=== PATIENT | male | born 1965 | race African-American/Black ===

== ENCOUNTER 2016-08-06 23:50 | Emergency (ER) | payer SELFPAY ==
[2016-08-07 03:24] LABS: BASOPHILS 0.5 %; BASOPHILS ABSOLUTE 0.04 10/3/uL (0.0-0.16); EOSINOPHILS 2.6 %; EOSINOPHILS ABSOLUTE 0.23 10/3/uL (0.0-0.53); HEMOGLOBIN 15.7 g/dL (13.6-17.8); IMMATURE GRANULOCYTES 0.1 %; IMMATURE GRANULOCYTES ABSOLUTE 0.01 10/3/uL (0.0-0.11); LYMPHOCYTES 30.7 %; MEAN CORPUS HGB CONC 36.5 g/dL (32.0-36.0); MEAN CORPUSCULAR HEMOGLOB 33.5 pg (26.0-34.0); MEAN PLATELET VOLUME 9.8 fL (9.2-13.0); MONOCYTES ABSOLUTE 0.53 10/3/uL (0.21-1.20); NEUTROPHILS 60.1 %; NEUTROPHILS ABSOLUTE 5.29 10/3/uL (2.02-8.40); PLATELET COUNT 212 10/3/uL (150-400); RBC DISTRIBUTION WIDTH 12.6 % (12.0-16.0); RED CELL COUNT 4.68 10/6/uL (4.7-6.1)
[2016-08-07 03:30] LABS: ER CBC TAT 0 Hrs 13 Mins; MANUAL DIFF NO %; MEAN CORPUSCULAR VOLUME 91.9 fL (80-100); WHITE BLOOD CELLS 8.8 10/3/uL (4.5-10.5)
[2016-08-07 03:37] LABS: BUN (BLOOD UREA NITROGEN) 7 MG/DL (6-23); CALCIUM, SERUM 8.8 MG/DL (8.5-10.4); CHLORIDE, SERUM 109 MMOL/L (96-112); CO2 (CARBON DIOXIDE) 24 MMOL/L (24-34); CREATININE 0.89 MG/DL (0.70-1.30); GFR AFRICAN AMERICAN 117 ML/MIN (>=60); GFR NON AFRICAN AMERICAN 101 ML/MIN (>=60); GLUCOSE, SERUM 93 MG/DL (60-99); POTASSIUM, SERUM 3.8 MMOL/L (3.5-5.3)
[2016-08-07 03:38] LABS: SODIUM, SERUM 145 MMOL/L (135-148)
[2016-08-07 05:20] LABS: ASCORBIC ACID (UR NOT ORDER) NEG (NEG); BILIRUBIN, URINE NEGATIVE (NEG); ER URINALYSIS TAT 0 Hrs 00 Mins; KETONE, URINE NEGATIVE (NEG); LEUKOCYTE ESTERASE(NOT OR TRACE (NEG); NITRITE (URINE) POS (NEG); WBC (NOT ORDERED) (RFLEX) 3 (0-5)
== END 2016-08-07 05:37 | disposition home or self-care (01) ==
LOC: ER 23:50
PROVIDERS: Physician Assistant
PROC: 0T9B70Z Drainage of Bladder with Drainage Device, Via Natural or Artificial Opening (ICD-10-PCS; principal; 2016-08-06)
DX: R33.9 Retention of urine, unspecified (principal); N13.5 Crossing vessel and stricture of ureter without hydronephrosis; F17.200 Nicotine dependence, unspecified, uncomplicated
CPT/HCPCS: 80048; 81001; 85025; 96374; 99284; A9270-GY; J2405

== ENCOUNTER 2017-01-12 16:26 | Inpatient (IN) | payer SELFPAY ==
[~2017-01-12] VITALS: Ht 188 cm; Wt 89.8 kg
--- NOTE | ~2017-01-12 | HP ---
History And Physical [facility] [address] [place]. [address] NAME: CELESTINA SHETH : 69 STATUS : ADM Patricio PAT#: [id number] AGE: 51 ADM/REG DATE : 01/12/17 MR#: [id number] REPORT SERV DATE: 01/13/17 DICTATED BY: JUANY MUÑOZ DATE: 01/12/17 REPORT STATUS : Draft TRANSCRIBED BY: MODL DATE: 01/12/17 DATE OF ADMISSION: 01/12/2017 CHIEF COMPLAINT: Left-sided weakness over the last 24 hours. HISTORY OF PRESENT ILLNESS: The patient is a 51-year-old, male very pleasant with past medical history of enlarged bladder requiring frequent home cath who says that over the last few weeks he has had upper respiratory illness like cold type symptoms that yesterday was productive, approximately green and noticed approximately yesterday started having left-sided numbness symptoms. The patient's fiancee who is SAS DEVELOPER at [employer] after being aware of the symptoms told patient to come into the hospital. The patient had initially been hesitant to tell anybody as he thought these were secondary to cold headache type symptoms. Symptoms were constant, moderate severity, nonradiating, no pain. He did have mild headache posterior back, but does not typically have headaches. No nausea, vomiting, fevers, or chills. He did have occasional upper respiratory sinus congestion with green sputum yesterday. Symptoms; there is nothing worsening symptoms, no relieving symptoms. Symptoms still currently present, reproducible, did have left side face, left upper extremity, left lower extremity, all numbness reproducible on physical exam, and does have mild weakness on left arm with mild drift and decreased sensation to touch on legs. ADDITIONAL REVIEW OF SYSTEMS: Ten-point review of systems negative except for that noted in the HPI. PAST MEDICAL HISTORY: Of enlarged bladder and self catheterization. FAMILY HISTORY: Recently female cancer in sister who just passed and hypertension. SOCIAL HISTORY: He smokes 1 pack per day. No alcohol or illicits. Single but accompanied by fiancee at bedside. SURGICAL HISTORY: Possible hernia history. PHYSICAL EXAMINATION: VITAL SIGNS: The patient's blood pressure 141/73, temperature 98, pulse 55, respirations 16, O2 sats 98% on room air. GENERAL: No acute distress. Calm, pleasant. HEAD: Normocephalic, atraumatic. EYES: No scleral icterus. EOMI. ENT: Nares patent. Tongue midline. RESPIRATORY: Clear to auscultation. No wheezes, rales, except on deep breath does have mild very faint right rhonchi in mid lung field posterior, improved with cough. CV: Regular rate. No rubs or gallops. GI: Soft, nontender, nondistended. Bowel sounds positive. : Deferred. MUSCULOSKELETAL: Moves all extremities x4. SKIN: Warm and dry. History And Physical [address] [place]. [address] NAME: CELESTINA SHETH : 69 STATUS : ADM Patricio PAT#: [id number] AGE: 51 ADM/REG DATE : 01/12/17 MR#: [id number] REPORT SERV DATE: 01/13/17 DICTATED BY: JUANY MUÑOZ DATE: 01/12/17 REPORT STATUS : Draft TRANSCRIBED BY: TIGIST DATE: 01/12/17 LYMPH: No cervical or supraclavicular lymphadenopathy. HEME: No bleeding or bruising. NEURO: He does have paresthesia on left face, left side of hand and leg reproducible. After extension of arms does have left hand drift, left side 4+, right side lower extremity 5+ strength. Gait not tested. Symmetrical smile. Pupil with reflex, tongue midline. Normal vocation and speech sabiha. Normal shoulder shrug and normal wrinkled brow. Normal school cafeteria cook head strength. PSYCH: Appropriate mood and affect. LABS: CBC grossly within normal limits. Glucose of 104. CMP grossly within normal limits, mildly elevated globulin of 4.3. LFTs within normal limits. Troponin negative. Brain without contrast, negative. Chest PA lateral; no evidence of cardiopulmonary disease. EKG; sinus bradycardia, rate of 54, QTc 422. No acute dynamic ST changes. ASSESSMENT AND PLAN: 1. Transient ischemic attack. 2. Bronchitis, possible early pneumonia. 3. chronic asthmatic bronchitis. 4. Tobacco use. 5. Questionable 20-pound weight loss. PLAN: 1. For TIA, negative CT of the head. We will perform TIA order set. We will check MRI MRA with ultrasound carotids echocardiogram. The patient does have smoking history. No definite tachyarrhythmias noted on echocardiogram but does have left-sided numbness with mild drift, mild weakness 4+ on left foot and 5+ right foot. He does have concurrent upper respiratory infection, possible viral likely turning to bacterial component. We will additionally address this. The patient does have what appears to be headache migraine possible from sinusitis, maybe some residual. No recent tick bites or tick borne diseases. 2. Bronchitis, possible early CAB. We will check sputum, antibiotics, cultures. No additional SIRS symptoms. Empiric antibiotics due to sputum and possible deescalation as tolerated. 3. Chronic catheterization. Check UA. Additionally repeat bladder scan. 4. Tobacco use, counseled nicotine patch one pack per day. 5. Questionable 20 pounds weight loss over the last month to 2 months. He has had different stressors in life with loss of family member. We will check chest x-ray, KUB, check TSH, pre-albumin. Further disposition pending findings from above. DDN/MODL History And Physical [address] [address] NAME: CELESTINA SHETH : 69 STATUS : ADM Patricio PAT#: [id number] AGE: 51 ADM/REG DATE : 01/12/17 MR#: [id number] REPORT SERV DATE: 01/13/17 DICTATED BY: JUANY MUÑOZ DATE: 01/12/17 REPORT STATUS : Draft TRANSCRIBED BY: TIGIST DATE: 01/12/17 Juany Muñoz MD / [id number] CC: Bruna Byers MD
--- NOTE | ~2017-01-12 | CN ---
Consultation Report [facility] [address] [place]. [address] NAME: CELESTINA SHETH : 69 STATUS : ADM Patricio PAT#: [id number] AGE: 51 ADM/REG DATE : 01/12/17 MR#: [id number] REPORT SERV DATE: 01/13/17 DICTATED BY: SOFIE FREEMAN DATE: 01/13/17 REPORT STATUS : Draft TRANSCRIBED BY: MODeJssy DATE: 01/13/17 NEUROLOGY CONSULTATION DATE OF CONSULTATION: 01/13/2017 REASON FOR CONSULTATION: Right-sided hemiparesis. PCP: None. HOSPITALIST: Dr. Byers. HISTORY OF PRESENT ILLNESS: The patient is a 51-year-old male, who has very minimal past medical history except he has had a large bladder. He has been doing self catheterization since the early because he is unable to affectively empty his bladder. He states that when he was a young child, he fell on his "tailbone," and feels that was a contributing factor to him not being able to affectively empty his bladder. He has been to see urologist and they were unable to determine the etiology. He does not have an enlarged prostate however. The patient has had an upper respiratory infection for the last few weeks. He has been coughing up thick yellow green sputum. His fiancee, who is a GEOTHERMAL FIELD TECHNICIAN at [employer] has encouraged him to seek medical treatment. He also had been complaining of left-sided numbness and weakness over the last two days. Finally, with his fiancee's insistence he came into the emergency department for further evaluation and treatment. Suspecting that he may have had a TIA or stroke, he was admitted by the ER physicians to the CDU for evaluation. The patient mentions that he has a positive family history for stroke and was concerned that he may have had one. He denies any visual changes. He denies any imbalance; however, states that it takes him longer to walk on his rounds at work since Wednesday. PAST MEDICAL HISTORY: "Enlarged bladder" having to do self catheterization sincere the early and hernia. Tobacco abuse. PAST SURGICAL HISTORY: Hernia repair. HOME MEDICATIONS: Includes Tylenol p.r.n. ALLERGIES: NONE. SOCIAL HISTORY: The patient has a fiancee. 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 He smokes one-pack per day. Denies use of alcohol or illicits. FAMILY HISTORY: The patient's father with a stroke six years ago. His mother at the age of 64 from bone cancer, and he has a sister who with SILO FILLER cancer, she also had hypertension. Consultation Report [facility] [id number] [place]. [address] NAME: CELESTINA SHETH : 69 STATUS : ADM Patricio PAT#: [id number] AGE: 51 ADM/REG DATE : 01/12/17 MR#: [id number] REPORT SERV DATE: 01/13/17 DICTATED BY: SOFIE FREEMAN DATE: 01/13/17 REPORT STATUS : Draft TRANSCRIBED BY: TIGIST DATE: 01/13/17 REVIEW OF SYSTEMS: For pertinent positives, please refer to the HPI. PHYSICAL EXAMINATION: GENERAL: The patient is a 51-year-old male, who stands 187 cm tall and weighs 89.8 kg. VITAL SIGNS: He is afebrile. Heart rate 85, respiratory rate 18, O2 saturations on room air 97%, and blood pressure 125/72. NEUROLOGIC: The patient is alert. He is oriented x4. Pleasant, communicates appropriately. Pupils are 3 mm PERRLA. EOMs are intact; however, he has slight nystagmus with rightward gaze. Visual leggett via confrontation are full bilaterally. The patient does not have a facial droop. Tongue, no tongue deviation. Uvula is midline. He does report diminished sensation on the left side of the face when compared to the right. Has a slight pronator drift on the left when compared to the right. Upper extremity strength in the right is 5/5, on the left is 4/5. Upper DTRs are minimal at best. Lower extremity strength is 4/5 on the left, and a 5/5 on the right. Patellar reflexes 1+ on the left. Unelicitable on the right. Downgoing toes bilaterally. The patient does report diminished sensation on the entire left side when compared to the right. He can get out of the bed and ambulate. He has good locomotion. Slight circumduction with the left hip when compared to the right. He is unable to tandem, but Romberg is negative. NECK: No carotid bruits, JVD, or thyromegaly. CHEST: Lung sounds are clear. HEART: Regular rate and rhythm with no murmur, click, gallop, or rub. PMI is apical. ABDOMEN: Soft, nontender. Active bowel sounds. LABORATORY DATA: CBC is normal. BMP is normal. CT of the brain without contrast, no acute changes. Echocardiogram is pending. Carotid duplex study is pending. Chest x-ray, no acute changes. ASSESSMENT/PLAN: 1. Probable stroke in the right MCA territory. At this point, the patient will undergo an MRI of the brain without gadolinium and an MRA of the head and neck. He also has an echocardiogram. PT and OT have been consulted. Case Management has been consulted for rehab placement. He is on aspirin 325 mg and his Lipitor will be increased to 80 mg at bedtime. Patient education was done on risk factor reduction. 2. Possible neurogenic bladder. The patient has been self cathing since the early . We will go ahead and do an MRI of the L-spine to rule out any structural abnormalities that may be contributing to the patient's neurogenic bladder. A urinalysis with micro will be checked also. Thank you again for including us in consultation. We will continue to follow with you. Dr. Sofie Freeman, collaborating physician has been notified of the patient's case and plan of care. DICTATED BY: Tangela Dee DNP, [facility]- Consultation Report [address] [address] NAME: CELESTINA HSETH : 69 STATUS : ADM Patricio PAT#: [id number] AGE: 51 ADM/REG DATE : 01/12/17 MR#: [id number] REPORT SERV DATE: 01/13/17 DICTATED BY: SOFIE FREEMANJHE DATE: 01/13/17 REPORT STATUS : Draft TRANSCRIBED BY: MODJessy DATE: 01/13/17 ANYA/TIGIST Sofie Freeman MD / [id number] CC: Bruna Byers MD
--- NOTE | ~2017-01-12 | DS ---
Discharge Summary [facility] [id number] [facility] [place]. [address] NAME: CELESTINA SHETH : 69 STATUS : DIS Patricio PAT#: [id number] AGE: 51 ADM/REG DATE : 01/12/17 MR#: [id number] REPORT SERV DATE: 01/16/17 DICTATED BY: BRUNA JUSTIN DATE: 01/16/17 REPORT STATUS : Draft TRANSCRIBED BY: MODJessy DATE: 01/16/17 ADMISSION DATE: 01/12/2017 DISCHARGE DATE: 01/16/2017 CONSULTATION: Neurology, Dr. Sofie Freeman. DISCHARGE DIAGNOSES: 1. Transient ischemic attack. 2. Left-sided hemiparesis. 3. Mucopurulent bronchitis. 4. Tobacco abuse. 5. Cervical spine stenosis. IMAGIN. Brain CT without contrast, impression: Negative noncontrast CT exam of the brain. 2. Chest x-ray, AP and lateral, impression: No evidence of acute cardiopulmonary disease. 3. Carotid Doppler ultrasound, impression: No significant carotid stenosis. The vertebral artery exhibit antegrade flow. 4. Echocardiogram, summary: Normal left ventricular size and systolic function with EF 60%. Normal left ventricular diastolic function. Normal right ventricular size and systolic function. No significant valve disease. No evidence of right to left shunt by bubble study. 5. MRI neck without contrast, impression: Brachiocephalic structures demonstrated no significant stenosis, carotid, vertebral, and subclavian arteries. There is a small amount of mild atherosclerotic changes of the proximal portion of the common carotid of the left side. 6. MRI brain, impression: There is no evidence of an acute or chronic ischemic changes. There is some mild left maxillary sinusitis. The remainder of the exam is normal. 7. MRI lumbar spine, impression: Massively dilated urinary bladder. No evidence of any canal stenosis or cord compression in the portion of the lumbar spine included. 8. MRA head, impression: Normal intracranial MRA. 9. MRI brain with and without contrast, impression: Repeat MRI with contrast again demonstrated no evidence of a recent infection, tumor, or mass to explain the patient's persistent stroke-type symptoms. 10.MRI cervical spine, impression: Central canal is spared. The neuroforaminal on the left demonstrate marked C3-C4 encroachment, which could be consistent with left C4 root symptoms. Right neural foramina demonstrated encroachment at C3, C4, C5 levels, severe, but could explain intermittent right C4-C5 nerve root irritation. Benign appearing high spinal intensity structure on the left, probably colloid cyst. Right foraminal encroachment marked at C3-C4. INVASIVE PROCEDURE PERFORMED DURING THIS ADMISSION: Lumbar puncture, CSF analysis essentially within normal limits. HISTORY OF PRESENT ILLNESS: For detailed HPI, please make reference to Dr. Du Pérez's dictation on 01/12/2017. In brief, this is a 51-year-old male, who Discharge Summary [address] [place]. [address] NAME: CELESTINA SHETH : 69 STATUS : DIS Patricio PAT#: [id number] AGE: 51 ADM/REG DATE : 01/12/17 MR#: [id number] REPORT SERV DATE: 01/16/17 DICTATED BY: BRUNA JUSTIN DATE: 01/16/17 REPORT STATUS : Draft TRANSCRIBED BY: TIGIST DATE: 01/16/17 presented within the emergency room department with left-sided weakness. Vital signs on presentation, blood pressure was 141/73, temperature was 98, pulse was 55, respiratory rate 16, saturating 98% on room air. Neurology exam showed left hand drift, left side strength 4/5. Right upper lower extremity, 5/5. LABORATORY DATA: CBC grossly within normal limits. Glucose 104. CMP grossly within normal limits. EKG, sinus bradycardia with ventricular rate 54, QTc 422. No ST dynamic changes. A CT without contrast of the brain was done in the ER showed no acute intracranial process. The patient was admitted to the Hospitalist Service for further evaluation. Left-sided hemiparesis likely due to TIA. Neurology was consulted and recommended a full stroke workup which includes MRI/MRA of the head and neck, a carotid Doppler ultrasound, and echo study with bubble study. All report came back essentially within normal limits. Detailed report as dictated above. Given initial persistent left-sided hemiparesis, a lumbar puncture was performed to rule out possibility of herpes or subarachnoid hemorrhage. CSF analysis was essentially within normal limits. Subarachnoid hemorrhage was ruled out as a cause of the left-sided hemiparesis as well as herpes simplex was also ruled out. Also, meningoencephalitis was ruled out with CSF analysis. Repeat imaging of the brain was still essentially within normal limits. Hence CVA was ruled out in this prior to discharge. Prior to discharge, the patient has left-sided hemiparesis have significantly improved. The patient was advised to continue physical therapy as an outpatient. Next, mucopurulent bronchitis, the patient reported cough productive of yellowish sputum during the course of this admission, received empiric antibiotics with significant improvement. The patient was counseled to abstain from smoking. Neurogenic bladder with history of chronic catheterization, the patient was advised to continue self catheterization as an outpatient. DISCHARGE MEDICATION: 1. Aspirin 325 mg p.o. daily. 2. Lipitor 80 mg at bedtime. 3. Azithromycin 250 mg p.o. daily. DISCHARGE ACTIVITIES: As tolerated. DISCHARGE FOLLOWUP: 1. Follow up with primary care physician within two to three weeks of discharge. 2. Continue home PT and home health. Greater than 30 minutes was used to prepare this patient's discharge, reconcile medication, and advised the patient on discharge plans and followup. PHILIPO/TIGIST Discharge Summary [place] [address] [place]. [address] NAME: CELESTINA SHETH : 69 STATUS : DIS Patricio PAT#: [id number] AGE: 51 ADM/REG DATE : 01/12/17 MR#: [id number] REPORT SERV DATE: 01/16/17 DICTATED BY: BRUNA JUSTIN DATE: 01/16/17 REPORT STATUS : Draft TRANSCRIBED BY: TIGIST DATE: 01/16/17 Bruna Justin MD / [id number] CC: Bruna Justin MD
[2017-01-12] MEDS ORDERED: ACET500CAP PO (18:30)
[2017-01-12 18:51] LABS: BASOPHILS 0.6 %; BASOPHILS ABSOLUTE 0.05 10/3/uL (0.0-0.16); EOSINOPHILS 2.1 %; EOSINOPHILS ABSOLUTE 0.19 10/3/uL (0.0-0.53); HEMATOCRIT 40.3 % (40.0-51.0); HEMOGLOBIN 14.1 g/dL (13.6-17.8); IMMATURE GRANULOCYTES 0.1 %; IMMATURE GRANULOCYTES ABSOLUTE 0.01 10/3/uL (0.0-0.11); LYMPHOCYTES 23.7 %; MEAN CORPUSCULAR HEMOGLOB 32.6 pg (26.0-34.0); MEAN CORPUSCULAR VOLUME 93.3 fL (80-100); MEAN PLATELET VOLUME 9.2 fL (9.2-13.0); MONOCYTES 7.3 %; MONOCYTES ABSOLUTE 0.65 10/3/uL (0.21-1.20); NEUTROPHILS 66.2 %; NEUTROPHILS ABSOLUTE 5.86 10/3/uL (2.02-8.40); PLATELET COUNT 224 10/3/uL (150-400); RBC DISTRIBUTION WIDTH 12.6 % (12.0-16.0); RED CELL COUNT 4.32 10/6/uL (4.7-6.1); WHITE BLOOD CELLS 8.9 10/3/uL (4.5-10.5)
[2017-01-12 18:53] LABS: MANUAL DIFF NO %
[2017-01-12 18:59] LABS: PARTIAL THROMBO TIME 28.3 SEC (22.5-37.2); PROTIME (NOT ORD) 13.3 SEC (12.0-14.5)
[2017-01-12 19:07] LABS: A/G RATIO 0.8 (0.7-1.9); ALBUMIN 3.6 G/DL (3.5-5.0); ALKALINE PHOSPHATASE 73 U/L (45-117); BUN (BLOOD UREA NITROGEN) 6 MG/DL (6-23); CALCIUM, SERUM 8.7 MG/DL (8.5-10.4); CHLORIDE, SERUM 105 MMOL/L (96-112); CREATININE 0.84 MG/DL (0.70-1.30); GFR AFRICAN AMERICAN 119 ML/MIN (>=60); GFR NON AFRICAN AMERICAN 103 ML/MIN (>=60); GLOBULIN 4.3 G/DL (2.5-4.1); GLUCOSE, SERUM 94 MG/DL (60-99); POTASSIUM, SERUM 3.7 MMOL/L (3.5-5.3); SGOT(AST) 15 U/L (5-40); SGPT(ALT) 18 U/L (5-65); SODIUM, SERUM 139 MMOL/L (135-148); TOTAL BILIRUBIN 0.3 MG/DL (0-1.2); TOTAL PROTEIN 7.9 G/DL (6.0-8.5); TROPONIN I <0.02 NG/ML (<0.05)
[2017-01-12 19:08] LABS: CO2 (CARBON DIOXIDE) 29 MMOL/L (24-34)
[2017-01-12 20:46] LABS: SED RATE 2 MM/HR (0-15)
[2017-01-13 05:19] LABS: BASOPHILS 0.4 %; BASOPHILS ABSOLUTE 0.03 10/3/uL (0.0-0.16); EOSINOPHILS 2.1 %; EOSINOPHILS ABSOLUTE 0.17 10/3/uL (0.0-0.53); HEMATOCRIT 38.8 % (40.0-51.0); HEMOGLOBIN 13.6 g/dL (13.6-17.8); IMMATURE GRANULOCYTES 0.1 %; IMMATURE GRANULOCYTES ABSOLUTE 0.01 10/3/uL (0.0-0.11); LYMPHOCYTES 19.5 %; LYMPHOCYTES ABSOLUTE 1.61 10/3/uL (0.67-4.30); MEAN CORPUS HGB CONC 35.1 g/dL (32.0-36.0); MEAN CORPUSCULAR HEMOGLOB 32.4 pg (26.0-34.0); MEAN CORPUSCULAR VOLUME 92.4 fL (80-100); MEAN PLATELET VOLUME 9.5 fL (9.2-13.0); MONOCYTES 6.2 %; MONOCYTES ABSOLUTE 0.51 10/3/uL (0.21-1.20); NEUTROPHILS 71.7 %; NEUTROPHILS ABSOLUTE 5.93 10/3/uL (2.02-8.40); PLATELET COUNT 216 10/3/uL (150-400); RBC DISTRIBUTION WIDTH 12.7 % (12.0-16.0); WHITE BLOOD CELLS 8.3 10/3/uL (4.5-10.5)
[2017-01-13 05:20] LABS: MANUAL DIFF NO %
[2017-01-13 05:56] LABS: A/G RATIO 0.9 (0.7-1.9); ALBUMIN 3.3 G/DL (3.5-5.0); ALKALINE PHOSPHATASE 65 U/L (45-117); BUN (BLOOD UREA NITROGEN) 5 MG/DL (6-23); CALCIUM, SERUM 8.5 MG/DL (8.5-10.4); CHLORIDE, SERUM 108 MMOL/L (96-112); CHOL/HDL RATIO(NOT ORDER) 2.3 (0-5); CHOLESTEROL 157 MG/DL (< 200); CO2 (CARBON DIOXIDE) 25 MMOL/L (24-34); CREATININE 0.93 MG/DL (0.70-1.30); FOLATE 12.3 NG/ML (>5.2); GFR AFRICAN AMERICAN 111 ML/MIN (>=60); GFR NON AFRICAN AMERICAN 96 ML/MIN (>=60); GLOBULIN 3.6 G/DL (2.5-4.1); GLUCOSE, SERUM 140 MG/DL (60-99); HDL CHOLESTEROL 67 MG/DL (> 39); LDL CHOLESTEROL 75 MG/DL (< 130); NON-HDL CHOLESTEROL 90 MG/DL (< 160); POTASSIUM, SERUM 3.5 MMOL/L (3.5-5.3); SGOT(AST) 13 U/L (5-40); SGPT(ALT) 15 U/L (5-65); SODIUM, SERUM 141 MMOL/L (135-148); TOTAL BILIRUBIN 0.7 MG/DL (0-1.2); TOTAL PROTEIN 6.9 G/DL (6.0-8.5); TRIGLYCERIDE 78 MG/DL (< 150); TROPONIN I <0.02 NG/ML (<0.05); ULTRASENSITIVE TSH 0.397 MCIU/ML (0.358-3.740)
[2017-01-13 06:17] LABS: PREALBUMIN 21.3 MG/DL (17.0-43.0)
[2017-01-13 10:56] LABS: GLYCOHEMOGLOBIN (HbA1c) 5.4 % (4.7-6.1)
[2017-01-13 22:57] LABS: ASCORBIC ACID (UR NOT ORDER) NEG (NEG); BILIRUBIN, URINE NEGATIVE (NEG); KETONE, URINE NEGATIVE (NEG); LEUKOCYTE ESTERASE(NOT OR SMALL (NEG); WBC (NOT ORDERED) (RFLEX) 12 (0-5)
[2017-01-14 04:03] LABS: BASOPHILS 0.7 %; BASOPHILS ABSOLUTE 0.04 10/3/uL (0.0-0.16); EOSINOPHILS 2.5 %; EOSINOPHILS ABSOLUTE 0.15 10/3/uL (0.0-0.53); HEMATOCRIT 40.8 % (40.0-51.0); HEMOGLOBIN 14.1 g/dL (13.6-17.8); IMMATURE GRANULOCYTES 0.2 %; IMMATURE GRANULOCYTES ABSOLUTE 0.01 10/3/uL (0.0-0.11); LYMPHOCYTES 34.8 %; LYMPHOCYTES ABSOLUTE 2.07 10/3/uL (0.67-4.30); MEAN CORPUS HGB CONC 34.6 g/dL (32.0-36.0); MEAN CORPUSCULAR HEMOGLOB 32.3 pg (26.0-34.0); MEAN CORPUSCULAR VOLUME 93.6 fL (80-100); MEAN PLATELET VOLUME 9.6 fL (9.2-13.0); MONOCYTES 8.4 %; NEUTROPHILS 53.4 %; NEUTROPHILS ABSOLUTE 3.17 10/3/uL (2.02-8.40); PLATELET COUNT 210 10/3/uL (150-400); RBC DISTRIBUTION WIDTH 12.5 % (12.0-16.0); RED CELL COUNT 4.36 10/6/uL (4.7-6.1); WHITE BLOOD CELLS 5.9 10/3/uL (4.5-10.5)
[2017-01-14 04:05] LABS: MANUAL DIFF NO %
[2017-01-14 04:21] LABS: BUN (BLOOD UREA NITROGEN) 7 MG/DL (6-23); CALCIUM, SERUM 8.9 MG/DL (8.5-10.4); CHLORIDE, SERUM 108 MMOL/L (96-112); CO2 (CARBON DIOXIDE) 25 MMOL/L (24-34); CREATININE 0.76 MG/DL (0.70-1.30); GFR AFRICAN AMERICAN 124 ML/MIN (>=60); GFR NON AFRICAN AMERICAN 107 ML/MIN (>=60); POTASSIUM, SERUM 3.9 MMOL/L (3.5-5.3); SODIUM, SERUM 140 MMOL/L (135-148)
[2017-01-14 04:23] LABS: GLUCOSE, SERUM 89 MG/DL (60-99)
[2017-01-14 04:53] LABS: PROCALCITONIN <0.05 ng/mL (<0.5)
[2017-01-15 05:37] LABS: BASOPHILS 0.6 %; BASOPHILS ABSOLUTE 0.04 10/3/uL (0.0-0.16); EOSINOPHILS 3.3 %; EOSINOPHILS ABSOLUTE 0.22 10/3/uL (0.0-0.53); HEMATOCRIT 40.6 % (40.0-51.0); HEMOGLOBIN 14.1 g/dL (13.6-17.8); IMMATURE GRANULOCYTES 0.1 %; IMMATURE GRANULOCYTES ABSOLUTE 0.01 10/3/uL (0.0-0.11); LYMPHOCYTES 38.7 %; MEAN CORPUS HGB CONC 34.7 g/dL (32.0-36.0); MEAN CORPUSCULAR HEMOGLOB 31.9 pg (26.0-34.0); MEAN CORPUSCULAR VOLUME 91.9 fL (80-100); MEAN PLATELET VOLUME 9.8 fL (9.2-13.0); MONOCYTES ABSOLUTE 0.54 10/3/uL (0.21-1.20); NEUTROPHILS 49.3 %; PLATELET COUNT 205 10/3/uL (150-400); RBC DISTRIBUTION WIDTH 12.6 % (12.0-16.0); RED CELL COUNT 4.42 10/6/uL (4.7-6.1); WHITE BLOOD CELLS 6.7 10/3/uL (4.5-10.5)
[2017-01-15 05:38] LABS: MANUAL DIFF NO %
[2017-01-15 05:48] LABS: BUN (BLOOD UREA NITROGEN) 8 MG/DL (6-23); CALCIUM, SERUM 8.7 MG/DL (8.5-10.4); CHLORIDE, SERUM 107 MMOL/L (96-112); CO2 (CARBON DIOXIDE) 24 MMOL/L (24-34); CREATININE 0.81 MG/DL (0.70-1.30); GFR AFRICAN AMERICAN 121 ML/MIN (>=60); GFR NON AFRICAN AMERICAN 104 ML/MIN (>=60); POTASSIUM, SERUM 3.5 MMOL/L (3.5-5.3); SODIUM, SERUM 139 MMOL/L (135-148)
[2017-01-15 05:50] LABS: GLUCOSE, SERUM 148 MG/DL (60-99)
[2017-01-15 14:09] LABS: TOTAL PROTEIN, CSF 54.7 MG/DL (15-45)
[2017-01-15 14:24] LABS: CSF BASO 0 % (NO REF RANGE); CSF EOS 0 % (0-1); CSF LYMPH (NOT ORD) 54 % (28-96); CSF MONO 46 % (16-56); CSF SEGS (NOT ORD) 0 % (0-7)
[2017-01-15 14:25] LABS: CSF APPEARANCE (NOT ORD) CLEAR (CLEAR); CSF COLOR (NOT ORD) COLORLESS (COLORLESS); CSF RBC (NOT ORD) 87 MM3 (NO REFERENCE); CSF WBC (NOT ORD) 2 /uL (0-10); CSF XANTHROCHROMIA NEG (NEG)
[2017-01-16 05:38] LABS: BASOPHILS 0.7 %; BASOPHILS ABSOLUTE 0.05 10/3/uL (0.0-0.16); EOSINOPHILS 3.9 %; EOSINOPHILS ABSOLUTE 0.26 10/3/uL (0.0-0.53); HEMATOCRIT 42.1 % (40.0-51.0); HEMOGLOBIN 14.9 g/dL (13.6-17.8); IMMATURE GRANULOCYTES 0.1 %; IMMATURE GRANULOCYTES ABSOLUTE 0.01 10/3/uL (0.0-0.11); LYMPHOCYTES 39.4 %; LYMPHOCYTES ABSOLUTE 2.63 10/3/uL (0.67-4.30); MEAN CORPUS HGB CONC 35.4 g/dL (32.0-36.0); MEAN CORPUSCULAR HEMOGLOB 32.1 pg (26.0-34.0); MEAN CORPUSCULAR VOLUME 90.7 fL (80-100); MEAN PLATELET VOLUME 9.7 fL (9.2-13.0); MONOCYTES 9.3 %; MONOCYTES ABSOLUTE 0.62 10/3/uL (0.21-1.20); NEUTROPHILS 46.6 %; NEUTROPHILS ABSOLUTE 3.11 10/3/uL (2.02-8.40); PLATELET COUNT 216 10/3/uL (150-400); RBC DISTRIBUTION WIDTH 12.4 % (12.0-16.0); RED CELL COUNT 4.64 10/6/uL (4.7-6.1); WHITE BLOOD CELLS 6.7 10/3/uL (4.5-10.5)
[2017-01-16 05:41] LABS: MANUAL DIFF NO %
[2017-01-16 05:51] LABS: BUN (BLOOD UREA NITROGEN) 9 MG/DL (6-23); CALCIUM, SERUM 8.7 MG/DL (8.5-10.4); CHLORIDE, SERUM 105 MMOL/L (96-112); CO2 (CARBON DIOXIDE) 28 MMOL/L (24-34); CREATININE 0.82 MG/DL (0.70-1.30); GFR AFRICAN AMERICAN 120 ML/MIN (>=60); GFR NON AFRICAN AMERICAN 104 ML/MIN (>=60); SODIUM, SERUM 141 MMOL/L (135-148)
[2017-01-16 05:52] LABS: GLUCOSE, SERUM 88 MG/DL (60-99)
[2017-01-16] MEDS ORDERED: ASABAYER PO (18:09)
[2017-01-16] MEDS ORDERED: LIPITOR80 MG PO (18:09)
[2017-01-16] MEDS ORDERED: ZITH250 PO (18:10)
[2017-01-16] MEDS ORDERED: HABIT21 TOP (18:10)
[2017-01-18 13:19] LABS: HSV DNA TYPE 1 Not Detected (NOTDET); HSV DNA TYPE 2 Not Detected (NOTDET)
== END 2017-01-16 18:45 | disposition home health service (06) | DRG 69 ==
LOC: ENRESERV → ENRESERVTM → ENRESERVDT → ER 16:26 → CDU1 21:55 → 1SO 21:55 → CDU1 22:52 → 1SO 01-14 20:26
PROVIDERS: Emergency Medicine; Hospitalist; Nurse Practitioner; Student in an Organized Health Care Education/Training Program
PROC: 009U3ZZ Drainage of Spinal Canal, Percutaneous Approach (ICD-10-PCS; principal; 2017-01-15)
PROC: B01B1ZZ Fluoroscopy of Spinal Cord using Low Osmolar Contrast (ICD-10-PCS; 2017-01-15)
DX: G45.9 Transient cerebral ischemic attack, unspecified (principal); G81.94 Hemiplegia, unspecified affecting left nondominant side; F17.210 Nicotine dependence, cigarettes, uncomplicated; R63.4 Abnormal weight loss; Z68.25 Body mass index [BMI] 25.0-25.9, adult; N40.1 Benign prostatic hyperplasia with lower urinary tract symptoms; R39.14 Feeling of incomplete bladder emptying; J41.1 Mucopurulent chronic bronchitis; M48.02 Spinal stenosis, cervical region; E78.5 Hyperlipidemia, unspecified
CPT/HCPCS: 62270; 70450; 70544; 70548; 70551; 70553; 71020; 72141; 72148; 77003; 80048; 80053; 80061; 81001; 82140; 82164; 82607; 82746; 82945; 82962; 83036; 83735; 84134; 84145; 84157; 84443; 84484; 85025; 85610; 85652; 85730; 86592; 86788; 86789; 87040; 87070; 87077; 87086; 87186; 87205; 87210; 87252; 87327; 87529; 87529-59; 89051; 93005; 93306; 93880; 97161-GP; 97166-GO; 99285; A9270-GY; A9577